=== PATIENT | female | born 1985 | race Caucasian/White ===

== ENCOUNTER 2016-11-11 01:07 | Emergency (ER) | payer SELFPAY ==
[~2016-11-11] VITALS: Ht 165.1 cm; Wt 61.2 kg
[2016-11-11 01:50] VITALS: BP 128/86
== END 2016-11-11 04:58 ==
LOC: ER 01:10
DX: M54.2 Cervicalgia (principal); M79.1 Myalgia; M54.9 Dorsalgia, unspecified; Z02.89 Encounter for other administrative examinations
CPT/HCPCS: 70450; 72125